=== PATIENT | female | born 1995 | race African-American/Black ===

== ENCOUNTER 2017-03-22 22:10 | Emergency (ER) | payer SELFPAY ==
[~2017-03-22] VITALS: Ht 170.2 cm; Wt 79.4 kg
--- NOTE | 2017-03-22 22:10 | NUR ---
Patient was BIB [place] [employer] and taken to [facility].
[2017-03-22 22:23] VITALS: BP 116/72
--- NOTE | 2017-03-22 22:32 | NUR ---
Dr. Talley evaluating patient.
[2017-03-22] MEDS ORDERED: INSULIN HUMAN REGULAR 100 UNITS/ML 10 ML VIAL SUBQ ONE (22:35)
--- NOTE | 2017-03-22 22:40 | NUR ---
MEDICATED PER [facility] ORDER, PATIENT TOLERATED WELL.
--- NOTE | 2017-03-23 00:02 | NUR ---
ACCU CHECK 282 MG/LDL, ERMD NOTED
[2017-03-23 00:05] VITALS: BP 116/72
--- NOTE | 2017-03-23 00:05 | NUR ---
Patient discharged with v/s stable. Written and verbal after care instructions given and explained. Patient verbalized understanding.[place] [employer] with in custody. All questions addressed prior to discharge. Advised to follow up with [employer].
--- NOTE | 2017-03-23 00:05 | NUR ---
PATIENT BIB [place] [employer]. PATIENT EXAMINED BY DR. CHILDS. PATIENT MEDICALLY CLEARED AND RELEASED IN CUSTODY IN STABLE CONDITION. ORIGINAL PRE-BOOK FORM GIVEN TO [place] OFFICER .
== END 2017-03-23 00:05 ==
LOC: MED 22:10
DX: Z02.89 Encounter for other administrative examinations (principal); Z88.6 Allergy status to analgesic agent; J45.909 Unspecified asthma, uncomplicated; E11.9 Type 2 diabetes mellitus without complications
CPT/HCPCS: 96372; 99283; J1815